=== PATIENT | female | born 1945 | race Caucasian/White ===

== ENCOUNTER 2016-09-28 08:54 | Inpatient (IN) | payer OTHER ==
--- NOTE | ~2016-09-28 | DS ---
Discharge Summary [facility] [address] [place]. [address] NAME: JARETH GUTIERREZ : 47 STATUS : DIS IN PAT#: [id number] AGE: 71 ADM/REG DATE : 09/28/16 MR#: [id number] REPORT SERV DATE: 10/03/16 DICTATED BY: IRMA VARNER DATE: 09/29/16 REPORT STATUS : Draft TRANSCRIBED BY: MODL DATE: 09/29/16 ADMISSION DATE: 09/28/2016 DISCHARGE DATE: 09/29/2016 DISCHARGE DIAGNOSES: 1. Acute hypoxic respiratory failure, resolved, improved. The patient does not require home oxygen. 2. Acute on chronic systolic dysfunction. 3. Status post cardiac cath showed a nonobstructive disease, medical treatment was recommended. 4. Diabetes mellitus, this is a former diagnosis. The patient was seen by diabetic education nurse and was given a glucometer and then given the education for diet restriction and lifestyle modification. 5. Hypothyroidism with TSH 22, dosage with thyroid replacement increased to 120 mg once a day. 6. Hyper-triglyceride probably due to hypothyroidism and obesity. 7. Acute kidney injury on chronic kidney disease, improved back to her normal baseline. The patient has sonographic finding of the thinning of the cortex on the right side kidney. HISTORY OF PRESENT ILLNESS: This is a 71-year-old female patient, who came to the hospital at [facility] Emergency Room with complaint of short of breath. Please see dictated H and P done by Dr. Aguilar. She was treated for hypertensive urgency with congestive heart failure. The patient had evaluation with echocardiogram at [facility] which showed moderate decreased left ventricular systolic function at ejection fraction 35%. We also had elevated filling pressure with diastolic dysfunction. Also has a dilated left-sided chambers. Due to this is new finding the patient was referred to get a cardiac catheterization. The patient was transferred to [facility] in order to obtain a cardiac catheterization. The cardiac cath did not show any obstructive disease. The patient was made medical treatment. Meanwhile the patient was already evaluated by [facility]. The patient was thought to have stable to get cardiac catheterization prior to the catheter from the Nephrology standpoint. After the cardiac cath she recovered very well. Her kidney function did not get any worse, remains in stable condition. She had evaluation for the chronic kidney disease, which was a new diagnosis to the patient as well. She does have some cortical thickening on the sonographic finding which supports medical kidney disease. The patient will be seen by [facility] as an outpatient for further evaluation and followup. Overall, she had improvement and hypoxia was resolved, and her medications have been well adjusted. She tolerated all the treatment and plan. The patient will be discharged to home in stable condition with followup at the Cardiology, [employer], and primary care physician. Discharge Summary [address] [address] NAME: JARETH GUTIERREZ : 47 STATUS : DIS IN PAT#: [id number] AGE: 71 ADM/REG DATE : 09/28/16 MR#: [id number] REPORT SERV DATE: 10/03/16 DICTATED BY: IRMA VARNER DATE: 09/29/16 REPORT STATUS : Draft TRANSCRIBED BY: SOFI DATE: 09/29/16 DIET: Emphasized to change her diet to ADA diet. DISCHARGE MEDICATIONS: 1. Continue the allopurinol 300 mg once a day. 2. Norvasc was increased to 5 mg twice a day. 3. Aspirin 81 mg once a day. 4. Lipitor was changed to 40 mg at bedtime from Pravachol. 5. Tenormin with discontinued. 6. Coreg 12.5 mg twice a day. 7. Plavix 75 mg once a day. 8. Continue the Paxil 10 mg once a day. 9. Thyroid was increased to 120 mg once a day. 10.Glucophage was discontinued. 11.Lisinopril was discontinued. 12.Hydrochlorothiazide was discontinued. 13.Furosemide 40 mg once a day. 14.Potassium 20 mEq once a day was added on this admission. DISPOSITION: The patient is discharged to home in stable condition. TIME SPENT: More than 30 minutes on education and discharge coordination. EKL/MODL Irma Varner M.D. / [id number] CC: Dewey Juarez M.D.
[~2016-09-28 08:54] MED LIST: ARMOUR THYRO120 MG PO; ATEN25 PO; GLUCPH PO; HYDROCHLOROT25 MG PO; LISINOPRIL40 MG PO; NORV10 PO; PAX10 PO; PRAVAC PO; Z300 PO
[2016-09-29 06:08] LABS: BASOPHILS 0.4 %; BASOPHILS ABSOLUTE 0.05 10/3/uL (0.0-0.16); EOSINOPHILS 1.1 %; EOSINOPHILS ABSOLUTE 0.14 10/3/uL (0.0-0.53); HEMATOCRIT 35.1 % (36.0-48.0); HEMOGLOBIN 11.6 g/dL (12.0-16.0); IMMATURE GRANULOCYTES 0.2 %; IMMATURE GRANULOCYTES ABSOLUTE 0.02 10/3/uL (0.0-0.11); LYMPHOCYTES 24.6 %; LYMPHOCYTES ABSOLUTE 3.05 10/3/uL (0.67-4.30); MEAN CORPUSCULAR HEMOGLOB 32.3 pg (26.0-34.0); MEAN CORPUSCULAR VOLUME 97.8 fL (80-100); MEAN PLATELET VOLUME 10.5 fL (9.2-13.0); MONOCYTES 7.9 %; MONOCYTES ABSOLUTE 0.98 10/3/uL (0.21-1.20); NEUTROPHILS 65.8 %; NEUTROPHILS ABSOLUTE 8.15 10/3/uL (2.02-8.40); PLATELET COUNT 374 10/3/uL (150-400); RBC DISTRIBUTION WIDTH 16.5 % (12.0-16.0); RED CELL COUNT 3.59 10/6/uL (4.0-5.6); WHITE BLOOD CELLS 12.4 10/3/uL (4.5-10.5)
[2016-09-29 06:12] LABS: MANUAL DIFF NO %
[2016-09-29 06:32] LABS: ALBUMIN 3.3 G/DL (3.5-5.0); CHLORIDE, SERUM 104 MMOL/L (96-112); CO2 (CARBON DIOXIDE) 18 MMOL/L (24-34); CREATININE 1.74 MG/DL (0.55-1.02); GFR AFRICAN AMERICAN 34 ML/MIN (>=60); GFR NON AFRICAN AMERICAN 29 ML/MIN (>=60); PHOSPHORUS, SERUM 3.2 MG/DL (2.5-4.5); SODIUM, SERUM 134 MMOL/L (135-148)
[2016-09-29 06:35] LABS: BUN (BLOOD UREA NITROGEN) 51 MG/DL (6-23); GLUCOSE, SERUM 97 MG/DL (60-99)
[2016-09-29 06:36] LABS: POTASSIUM, SERUM 4.3 MMOL/L (3.5-5.3)
[2016-09-29] MEDS ORDERED: COREG12 PO (16:22)
[2016-09-29] MEDS ORDERED: BIDIL20/37 PO (16:23)
[2016-09-29] MEDS ORDERED: PLAVIX PO (16:23)
[2016-09-29] MEDS ORDERED: L40 PO (16:23)
[2016-09-29] MEDS ORDERED: LIPITOR40 PO (16:24)
== END 2016-09-29 18:01 | disposition home or self-care (01) | DRG 280 ==
LOC: CORLMH 08:54 → SSU1 10:15 → 5NO 09-29 10:25
PROVIDERS: Internal Medicine Nephrology
PROC: 5A09357 Assistance with Respiratory Ventilation, Less than 24 Consecutive Hours, Continuous Positive Airway Pressure (ICD-10-PCS; 2016-09-24)
PROC: 4A023N7 Measurement of Cardiac Sampling and Pressure, Left Heart, Percutaneous Approach (ICD-10-PCS; principal; 2016-09-28)
PROC: B2111ZZ Fluoroscopy of Multiple Coronary Arteries using Low Osmolar Contrast (ICD-10-PCS; 2016-09-28)
PROC: B2151ZZ Fluoroscopy of Left Heart using Low Osmolar Contrast (ICD-10-PCS; 2016-09-28)
DX: I21.4 Non-ST elevation (NSTEMI) myocardial infarction (principal); I50.23 Acute on chronic systolic (congestive) heart failure; J96.01 Acute respiratory failure with hypoxia; N17.9 Acute kidney failure, unspecified; I13.0 Hypertensive heart and chronic kidney disease with heart failure and stage 1 through stage 4 chronic kidney disease, or unspecified chronic kidney disease; E87.2 Acidosis; E03.9 Hypothyroidism, unspecified; N18.9 Chronic kidney disease, unspecified; E78.00 Pure hypercholesterolemia, unspecified; E11.22 Type 2 diabetes mellitus with diabetic chronic kidney disease; E11.65 Type 2 diabetes mellitus with hyperglycemia; M10.9 Gout, unspecified; F41.8 Other specified anxiety disorders; Z85.3 Personal history of malignant neoplasm of breast
CPT/HCPCS: 36600; 71010; 76775; 80048; 80061; 80069; 80074; 81001; 82088; 82607; 82747; 82805; 82962; 83036; 83605; 83735; 83880; 84145; 84155; 84165; 84244; 84439; 84443; 84481; 84484; 85025; 85610; 85730; 86039; 86592; 87040; 93005; 93306; 93458; 94640; 94660; 96365; 96375; 99152; 99153; 99291; A9270-GY; C1769; C1887; C1894; J0360; J1956; J2250; J3010; Q9967